=== PATIENT | female | born 1940 | race Caucasian/White ===

== ENCOUNTER → 2017-01-16 | Outpatient (CLI) | payer OTHER | LOC: FIMAGING 11:47 | PROVIDERS: ATTEND Physical Medicine & Rehabilitation | DX: M41.85 Other forms of scoliosis, thoracolumbar region (principal); M50.323 Other cervical disc degeneration at C6-C7 level; M43.12 Spondylolisthesis, cervical region ==

== ENCOUNTER 2017-03-10 09:05 | Observation (INO) | payer OTHER ==
[2017-03-10] MEDS ORDERED: diphenhydrAMINE 25 MG CAP PO ONE ×2 (09:09→09:35)
[2017-03-10] MEDS ORDERED: ASPIRIN EC 325 MG TAB PO ONE ×2 (09:09→09:35)
[2017-03-10] MEDS ORDERED: FAMOTIDINE 20 MG TAB PO ONE (09:09)
[2017-03-10] MEDS ORDERED: DIAZEPAM 5 MG TAB PO ONE (09:09)
[2017-03-10] MEDS ORDERED: NS 1,000 ML IV ONE (09:09)
--- NOTE | 2017-03-10 09:26 | CPEKG ---
Heart Rate: 66 RR Interval: 909 P-R Interval: 148 QRSD Interval: 78 QT Interval: 400 QTC Interval: 420 P [place]: 47 QRS [place]: 72 T Wave [place]: 44 EKG Severity - NORMAL ECG - EKG Impression: SINUS RHYTHM Electronically Signed By: Darrin Patel 11-Mar-2017 10:16:21
[2017-03-10] MEDS ORDERED: FAMOTIDINE 20 MG TAB ONE (09:35)
[2017-03-10] MEDS ORDERED: DIAZEPAM 5 MG TAB ONE (09:36)
[2017-03-10 09:46] LABS: % IMMATURE GRANULYOCYTES 0.4 % (0.0-1.1); ABSOLUTE IMMATURE GRANULOCYTES 0.03 10^3/uL (0.00-0.10); ADD DIFF? NO; ADD MORPH? NO; ADD SCAN? NO; ATYPICAL LYMPHOCYTE FLAG 10 (0-99); FRAGMENT RBC FLAG 0 (0-99); HEMATOCRIT 39.5 % (38.0-47.0); HEMOGLOBIN 13.9 g/dL (12.6-16.3); LEFT SHIFT FLG 0 (0-99); LIPEMIA HEMOLYSIS FLAG 90 (0-99); MEAN CELL HEMOGLOBIN 31.6 pg (27.9-34.1); MEAN CELL HEMOGLOBIN CONCENTR. 35.2 g/dL (32.4-36.7); MEAN CELL VOLUME 89.8 fL (81.5-99.8); MEAN PLATELET VOLUME 9.4 fL (8.7-11.7); PLATELET CLUMPS FLAG 0 (0-99); PLATELET COUNT 235 10^3/uL (150-400); RED CELL DISTRIBUTION WIDTH 13.4 % (11.5-15.2)
[2017-03-10 09:53] LABS: INR 0.95 (0.83-1.16); PROTIME(PATIENT) 12.6 SEC (12.0-15.0)
[2017-03-10 09:57] LABS: ANION GAP 10 mEq/L (8-16); CALCIUM 9.2 mg/dL (8.5-10.4); CARBON DIOXIDE 27 mEq/l (22-31); CHLORIDE 97 mEq/L (97-110); CHOLESTEROL 184 mg/dL (140-220); CHOLESTEROL/HDL RATIO 2.07 RATIO (1.00-4.44); CREATININE 0.9 mg/dL (0.6-1.0); GLOMERULAR FILTRATION RATE > 60; GLUCOSE 112 mg/dL (70-100); HIGH DENSITY LIPOPROTEIN 89 mg/dL (40-85); LDL/HDL RATIO 0.82 RATIO (1.00-3.22); LOW DENSITY LIPOPROTEIN 73 mg/dL (80-100); MAGNESIUM 2.2 mg/dL (1.6-2.3); NON-HIGH DENSITY LIPOPROTEIN 95 mg/dL (90-129); POTASSIUM 4.7 mEq/L (3.5-5.2); SODIUM 134 mEq/L (134-144); TRIGLYCERIDE 112 mg/dL (35-135); VERY LOW DENSITY LIPOPROTEINS 22 mg/dL (8-25)
[2017-03-10] MEDS ORDERED: LIDOCAINE 1% 30 ML SDV ONE (10:06)
[2017-03-10] MEDS ORDERED: fentaNYL 100 MCG/2 ML INJ ONE (10:07)
[2017-03-10] MEDS ORDERED: MIDAZOLAM 2 MG/2 ML VIAL ONE (10:07)
[2017-03-10] MEDS ORDERED: IOPAMIDOL (ISOVUE-370) 150 ML BTL IV ONE (10:07)
[2017-03-10] MEDS ORDERED: NITROGLYCERIN 1,500 MCG/15 ML VIAL MISC ONE (11:52)
[2017-03-10] MEDS ORDERED: BIVALIRUDIN 250 MG/5 ML VIAL IV ONE (11:52)
[2017-03-10] MEDS ORDERED: ADENOSINE 6 MG/2 ML VIAL ONE (12:05)
[2017-03-10] MEDS ORDERED: PRASUGREL HCL 10 MG TAB ONE (12:58)
--- NOTE | 2017-03-10 12:59 | PDDXCAT ---
Diagnostic Cath Note - . Date: 03/10/17 Intervention: Drug Eluting Stent Implantation in the proximal LAD (see below). *Procedure 1. selective coronary angiography 2. drug-eluting stent implantation in the proximal LAD 3. intravascular ultrasound (IVUS) of the LAD Indication: I was called for intervention after the identification of a 65% proximal LAD lesion by Dr. Curtis during diagnostic catheterization. The patient has clinical symptoms of angina and a stress test positive for ischemia. Access: Right femoral artery *Materials Left Heart Cath size: 6F Left Heart Cath materials: JR4.0, 2.75 x 16 mm Synergy drug-eluting stent, 0.014 " Intuition Guide Wire, 2.75 x 12 mm NC Emerge balloon, IVUS catheter *Findings-Selective Coronary Angiography LM: The left main is ~4.5 mm in size and bifurcates into an LAD and circumflex system. There is no evidence of flow-limiting disease. LAD: The proximal LAD is ~2.75 mm in size. There is a 65% proximal LAD lesion via QCA with JOVANA III flow. We proceeded with drug-eluting stent implantation as outlined below. LCX: There is a 30-40% ostial left circumflex lesion with JOVANA III flow. There is no evidence of flow-limiting disease. *Intervention A 6 [place] JR4 guiding catheter was used for guide catheter support. A 0.014" Intuition Guide Wire was advanced across the proximal LAD under direct fluoroscopic and angiographic guidance. A 2.75 x 16 mm Synergy Drug Eluting Stent was placed in the proximal LAD lesion (65% stenosis; JOVANA III flow) and inflated to a maximum of 14 darrian of pressure. S/p stent implantation, the stent was exchanged for a 2.75 x 12 mm NC Emerge balloon. This was used to post- dilate the distal portion of the implanted stent under a maximum of 14 darrian of pressure. S/p stent implantation, IVUS was performed on the proximal LAD to ensure we did not compromise the ostium of the left circumflex. There was 0% residual stenosis on intravascular ultrasound. We did not compromise the left circumflex. *Summary Complications: None Estimated blood loss: <50ml Closure method: Angioseal Assessment/Conclusion: 1. [place] vessel coronary artery disease that was determined to be flow- limiting in the proximal LAD. We proceeded with drug eluting stent implantation with excellent angiographic results (65% plaque area stenosis with JOVANA III flow pre stent implantation; 0% residual stenosis with JOVANA III flow post stent implantation). The patient will need to be on dual-antiplatelet therapy for at least 1 year s/p stent implantation. She is under the care of Dr. Curtis.
[2017-03-10] MEDS ORDERED: ATROPINE SULFATE 1 MG/10 ML SYR IVP PRN (13:15)
[2017-03-10] MEDS ORDERED: NITROGLYCERIN 0.4 MG BTL SL PRN (13:15)
[2017-03-10] MEDS ORDERED: LORazepam 2 MG/ML INJ IVP PRN (13:15)
[2017-03-10] MEDS ORDERED: NS 1,000 ML IV SCH (13:15)
[2017-03-10] MEDS ORDERED: ONDANSETRON 4 MG/2 ML VIAL IVP PRN (13:15)
[2017-03-10] MEDS ORDERED: TEMAZEPAM 15 MG CAP PO PRN (13:15)
[2017-03-10] MEDS ORDERED: OXYCODONE/APAP 5/325 TAB PO PRN (13:15)
[2017-03-10] MEDS ORDERED: PRASUGREL HCL 10 MG TAB PO ONE (13:15)
--- NOTE | 2017-03-10 13:28 | CPEKG ---
Heart Rate: 58 RR Interval: 1034 P-R Interval: 176 QRSD Interval: 82 QT Interval: 432 QTC Interval: 425 P [place]: 73 QRS [place]: 66 T Wave [place]: 33 EKG Severity - NORMAL ECG - EKG Impression: SINUS RHYTHM EKG Impression: NON SPECIFIC INFERIOR ST/T WAVE CHANGES NOTED Electronically Signed By: Darrin Patel 11-Mar-2017 10:16:47
[2017-03-10] MEDS: HYDROCODONE/APAP 5/325 TAB PO PRN ×2 (15:04→23:47)
[2017-03-10] MEDS ORDERED: NON-FORMULARY NEW DRUG (Esomeprazole Magnesium [Nexium 24hr] 22.3 MG) PO PRN (15:27)
[2017-03-10] MEDS ORDERED: NORTRIPTYLINE HCL 10 MG CAP PO PRN (15:27)
[2017-03-10] MEDS ORDERED: NON-FORMULARY NEW DRUG (Losartan/Hydrochlorothiazide [Losartan-Hctz 100-25 Mg Tab] 1 EACH) PO SCH (15:30)
[2017-03-10] MEDS ORDERED: PANTOPRAZOLE SODIUM 40 MG TAB PO PRN (15:33)
[2017-03-10] MEDS: LOSARTAN/HCTZ 50/12.5 1 TAB PO SCH (15:45)
--- NOTE | 2017-03-10 16:15 | CPEKG ---
Heart Rate: 63 RR Interval: 952 P-R Interval: 180 QRSD Interval: 84 QT Interval: 452 QTC Interval: 463 P [place]: 82 QRS [place]: 75 T Wave [place]: 27 EKG Severity - NORMAL ECG - EKG Impression: SINUS RHYTHM EKG Impression: CONTINUED NON SPECIFIC ST/T WAVE CHANGES TO THE INFERIOR LEADS Electronically Signed By: Darrin Patel 11-Mar-2017 10:17:11
--- NOTE | 2017-03-10 16:59 | CPIP ---
[f rep st] INVASIVE CARDIAC PROCEDURE DATE OF PROCEDURE: 03/10/2017 PROCEDURE PERFORMED: Diagnostic left heart catheterization. INDICATION FOR PROCEDURE: New onset of substernal chest pressure, abnormal nuclear stress test demo nstrating anterior wall ischemia, and an ongoing complaints of bilateral shoulder pain with exertion in the setting of multiple coronary artery risk factors, including 50 year history of smoking and h ypertension. PROCEDURE: After informed consent was obtained, the patient was brought to the cardiac catheterizat ion lab where she was prepped and draped in a sterile fashion. Using 1% lidocaine, the right groin was anesthetized. Using modified Seldinger technique, a 6-Uzbek catheter was placed into the right common femoral artery without complications. Using a JL4 catheter . JL4 catheter was us ed to take images of the left coronary anatomy in multiple projections. The JL4 catheter was exchan ged over a guidewire for a JR4 catheter. JR4 catheter was used to take images of the left coronary anatomy in multiple projections. The JR4 catheter was exchanged over a guidewire for an angled pigt ail catheter. An angled pigtail catheter was used to cross the aortic valve. Left ventriculogram w as performed. LVEDP was assessed. Angled pigtail catheter was pulled back. An aortic valve gradie nt was assessed. Angled pigtail catheter was removed over a guidewire without complications. FINDINGS: 1. Left main normal size and caliber. It bifurcates into a left anterior descending and left circu mflex coronary artery. There is no evidence of coronary disease within the left main. 2. Left anterior descending artery is a large artery that wraps around the LV apex. There is a sma ll 1st and moderate size 2nd diagonal branch, which is free of coronary artery disease. There is a 70% to 80% stenosis in the proximal LAD. There remainder of the LAD is free of coronary artery dise ase. 3. The circumflex artery demonstrated 20% to 30% ostial stenosis. Some mild luminal irregularities within the distal circumflex and 1st obtuse marginal branch. 4. Right coronary artery. There is 20% narrowing at the proximal segment of the right coronary art baron. The remainder of the vessel is free of coronary artery disease. Right dominant system. 5. Left ventriculogram demonstrates LVEF of 60% to 65%. No evidence of aortic valve gradient. CONCLUSION: 1. Severe single-vessel coronary artery disease to the proximal LAD of 70% to 80%. 2. Ostial circumflex stenosis of 20% to 30%. 3. Proximal RCA stenosis of approximately 20%. 4. Mild luminal irregularities within the mid and distal circumflex and obtuse marginal branch. PLAN: I have reviewed the images with my interventional colleague, Dr. Mckeon. We will plan for pe rcutaneous coronary intervention to the proximal LAD. /[id number]/MODL
[2017-03-10] MEDS ORDERED: METOPROLOL SUCCINATE XR 50 MG TAB PO SCH (21:00)
[2017-03-11 04:37] LABS: % IMMATURE GRANULYOCYTES 0.4 % (0.0-1.1); ABSOLUTE IMMATURE GRANULOCYTES 0.04 10^3/uL (0.00-0.10); ADD DIFF? NO; ADD MORPH? NO; ADD SCAN? NO; ATYPICAL LYMPHOCYTE FLAG 0 (0-99); FRAGMENT RBC FLAG 0 (0-99); HEMATOCRIT 39.4 % (38.0-47.0); HEMOGLOBIN 13.3 g/dL (12.6-16.3); LEFT SHIFT FLG 0 (0-99); LIPEMIA HEMOLYSIS FLAG 90 (0-99); MEAN CELL HEMOGLOBIN 31.4 pg (27.9-34.1); MEAN CELL HEMOGLOBIN CONCENTR. 33.8 g/dL (32.4-36.7); MEAN CELL VOLUME 92.9 fL (81.5-99.8); MEAN PLATELET VOLUME 9.4 fL (8.7-11.7); PLATELET CLUMPS FLAG 0 (0-99); PLATELET COUNT 240 10^3/uL (150-400); RED BLOOD CELL COUNT 4.24 10^6/uL (4.18-5.33); RED CELL DISTRIBUTION WIDTH 13.8 % (11.5-15.2)
[2017-03-11 04:53] LABS: ALBUMIN 3.8 g/dL (3.5-5.0); ANION GAP 6 mEq/L (8-16); ASPARTATE AMINOTRANSFERASE 26 IU/L (14-46); BILIRUBIN,TOTAL 0.6 mg/dL (0.1-1.4); CALCIUM 8.8 mg/dL (8.5-10.4); CARBON DIOXIDE 26 mEq/l (22-31); CHLORIDE 103 mEq/L (97-110); CREATININE 0.7 mg/dL (0.6-1.0); GLOMERULAR FILTRATION RATE > 60; GLUCOSE 84 mg/dL (70-100); LACTATE DEHYDROGENASE 463 IU/L (313-618); MAGNESIUM 2.3 mg/dL (1.6-2.3); POTASSIUM 4.7 mEq/L (3.5-5.2); SODIUM 135 mEq/L (134-144)
[2017-03-11 07:47] VITALS: BP 106/52; PULSE 63; RESP 14; TEMP 97.7; O2SAT 92
--- NOTE | 2017-03-11 08:45 | SOAPPROG ---
SOAP Progress Note Assessment/Plan: Assessment: Cardiology ([facility]) 1. CAD s/p RHONDA x 1 LAD 2.75 x 16 mm. There was mild RCA and Cx disease. DAPT with aspirin 325 mg and Effient. 2. Long history of tobacco use. 3. HTN treated w/ losartan HCTZ and metoprolol. Control is improved following PCI. 4. Exertional leg heaviness without overt claudication. 5. Normal fasting lipids. She has been started on atorvastatin 40 mg/d in the setting of CAD. 6. Osteoarthritis. Plan: 1. New Rx for Effient and atorvastatin. 2. Continue all other home medications. 3. Refrain from water aerobics for 1-2 weeks. 4. Discharge to home today. 5. Office follow up 03/18 at 130 pm. ABIs at that visit. 03/11/17 08:40 Subjective: She has no complaints overnight. Right groin is mildly tender, there may be a small hematoma. There is no bruit on auscultation. BP is improved. No events on telemetry overnight. Objective: Vital Signs Temp Pulse Resp BP Pulse Ox 36.5 C 63 14 106/52 L 92 03/11/17 07:46 03/11/17 07:46 03/11/17 07:46 03/11/17 07:46 03/11/17 07:46 Laboratory Results 03/11/17 03:48 03/11/17 03:48 03/10/17 03/11/17 03/12/17 05:59 05:59 05:59 Intake Total 500 900 Balance 500 900 PT 12.6 SEC (12.0-15.0) 03/10/17 09:38 INR 0.95 (0.83-1.16) 03/10/17 09:38 - Time Spent With Patient Time Spent With Patient: 45 minutes spent in coordinating care, physical exam, and documentation. - Pending Discharge Pending Discharge Within 24 Hours: Yes Pending Discharge Date: 03/12/17 Pending Discharge Time: 11:00 Physical Exam - Physical Exam General Appearance: WD/WN, alert, no apparent distress Respiratory: chest non-tender, lungs clear, normal breath sounds Cardiac/Chest: normal peripheral pulses, regular rate, rhythm Peripheral Pulses: 2+: dorsalis-pedis (R), dorsalis-pedis (L) Abdomen: normal bowel sounds, non-tender, soft Extremities: normal range of motion, non-tender, normal inspection, normal capillary refill Neuro/Psych: no motor/sensory deficits, alert, normal mood/affect, oriented x 3 ICD10 Worksheet Patient Problems: Problems Problem Status Onset Coronary artery disease Acute
--- NOTE | 2017-03-11 08:49 | CPEKG ---
Heart Rate: 67 RR Interval: 896 P-R Interval: 160 QRSD Interval: 78 QT Interval: 392 QTC Interval: 414 P [place]: 66 QRS [place]: 61 T Wave [place]: 31 EKG Severity - NORMAL ECG - EKG Impression: SINUS RHYTHM EKG Impression: LEFT ATRIAL ENLARGEMENT Electronically Signed By: Darrin [place] 11-Mar-2017 18:35:02
[2017-03-11] MEDS: LOSARTAN/HCTZ 50/12.5 1 TAB PO SCH (08:59)
[2017-03-11] MEDS ORDERED: TIOTROPIUM INHALER 18 MCG/DOSE 5 DOSE/MDI IH SCH (09:00)
[2017-03-11] MEDS ORDERED: PRASUGREL HCL 5 MG TAB PO SCH (09:00)
[2017-03-11] MEDS ORDERED: buPROPion XL 150 MG TAB PO SCH (09:00)
[2017-03-11] MEDS ORDERED: ASPIRIN EC 325 MG TAB PO SCH (09:00)
[2017-03-11] MEDS ORDERED: ATORVASTATIN CALCIUM 40 MG TAB PO SCH (09:00)
[2017-03-11] MEDS ORDERED: NON-FORMULARY NEW DRUG (Bupropion Hcl [Wellbutrin Xl] 300 MG) PO SCH (09:00)
--- NOTE | 2017-03-11 10:00 | GDS ---
[f rep st] DISCHARGE SUMMARY DISCHARGE DIAGNOSES: 1. Coronary artery disease, status post stenting of left anterior descending artery. 2. Long history of tobacco abuse. 3. Hypertension. 4. Normal fasting lipids. 5. Osteoarthritis. 6. Exertional leg heaviness without overt claudication. PROCEDURE PERFORMED: 1. Left heart catheterization with selective coronary angiography and ventriculography (performed by Dr. Curtis). 2. Implantation of single drug-eluting stent in the left anterior descending artery followed by post dilation and IVUS (performed by Dr. Mckeon). HOSPITAL COURSE: The patient is a pleasant 76-year-old female with a history of hypertension and long history of tobacco use who was referred by her primary care physician for chest discomfort. She underwent nuclear stress testing through our office that showed an anterior and apical wall perfusion defect, and she was referred for elective left heart catheterization, which she underwent yesterday. Diagnostic angiography performed by Dr. Curtis showed an approximately 70% stenotic lesion in the left anterior descending artery. There was otherwise mild coronary disease in the right coronary and circumflex arteries. Intervention was performed by Dr. Mckeon with a single 2.75 x 16 mm Synergy stent. Please see dictated report for further details. The procedure was performed via right femoral approach, and there were no complications. The patient had no complaints overnight. Her right groin puncture site looks good but there is some soft swelling, consistent with a small hematoma. It is mildly tender to palpation, but she has no issues walking. There are normal dorsalis pedis pulses bilaterally. CBC and chemistry panel are unremarkable. There have been no events on telemetry overnight. She denies any chest discomfort, shortness of breath, or dizziness since her procedure. Blood pressures have come down considerably from the last couple of weeks, and she will go home on her current antihypertensive medication regimen. The patient will be discharged today with instructions as below. DISCHARGE MEDICATIONS: Aspirin 325 mg p.o. daily, Effient 10 mg p.o. daily, atorvastatin 40 mg p.o. daily, Hyzaar 50/12.5 mg 2 tablets daily, Wellbutrin 300 mg p.o. daily, metoprolol succinate 50 mg p.o. q.h.s., Nexium 22.3 mg once daily, Pamelor 10 mg q.h.s., Prolia 60 mg subcutaneous twice yearly. DISCHARGE INSTRUCTIONS: The patient has a followup scheduled for March 18 at 1:30 in our office. She will be continued on her other home medications with the addition of atorvastatin, Effient, and aspirin. Her medications have been described to her in detail. She does plan to participate in cardiac rehab. However, she will likely choose to do this at either [facility] or [facility]. She does incidentally complain of some bilateral buttock discomfort with exertion as well as leg heaviness bilaterally when she walks. As an incidental note, we will perform ankle/brachial indices in our office due to her multiple risk factors for peripheral artery disease. She will also likely need a baseline carotid ultrasound in the future. /[id number]/MODL MTDD
== END 2017-03-11 10:43 | disposition home or self-care (01) ==
LOC: FCATH 09:05 → F2W 13:15
PROVIDERS: ADMIT Internal Medicine Cardiovascular Disease; ATTEND Internal Medicine Cardiovascular Disease
DX: I25.10 Atherosclerotic heart disease of native coronary artery without angina pectoris (principal); Z87.891 Personal history of nicotine dependence; I10 Essential (primary) hypertension; M19.90 Unspecified osteoarthritis, unspecified site
CPT/HCPCS: 92978; 93005; 93458; C1725; C1753; C1760; C1769; C1874; C1887; C9600; J0583; J1644; J2250; J3010; Q9967; J0153

== ENCOUNTER → 2017-03-26 | Outpatient (CLI) | payer OTHER | LOC: BMCIMAGING 08:03 | PROVIDERS: ATTEND Physician Assistant Medical | DX: I25.10 Atherosclerotic heart disease of native coronary artery without angina pectoris (principal); I10 Essential (primary) hypertension ==

== ENCOUNTER 2017-07-10 19:50 | Inpatient (IN) | payer OTHER ==
[2017-07-10 20:36] LABS: % IMMATURE GRANULYOCYTES 0.8 % (0.0-1.1); ADD DIFF? NO; ADD MORPH? NO; ADD SCAN? NO; ATYPICAL LYMPHOCYTE FLAG 10 (0-99); FRAGMENT RBC FLAG 0 (0-99); HEMATOCRIT 36.4 % (38.0-47.0); HEMOGLOBIN 11.7 g/dL (12.6-16.3); LEFT SHIFT FLG 0 (0-99); LIPEMIA HEMOLYSIS FLAG 80 (0-99); MEAN CELL HEMOGLOBIN 30.9 pg (27.9-34.1); MEAN CELL HEMOGLOBIN CONCENTR. 32.1 g/dL (32.4-36.7); MEAN PLATELET VOLUME 9.2 fL (8.7-11.7); PLATELET CLUMPS FLAG 0 (0-99); PLATELET COUNT 247 10^3/uL (150-400); RED BLOOD CELL COUNT 3.79 10^6/uL (4.18-5.33); RED CELL DISTRIBUTION WIDTH 14.6 % (11.5-15.2)
[2017-07-10 20:56] LABS: ALANINE AMINOTRANSFERASE 33 IU/L (9-52); ALKALINE PHOSPHATASE 69 IU/L (38-126); ANION GAP 15 mEq/L (8-16); ASPARTATE AMINOTRANSFERASE 16 IU/L (14-46); BILIRUBIN,TOTAL 0.6 mg/dL (0.1-1.4); BILIRUBIN-CONJUGATED 0.4 mg/dL (0.0-0.5); BILIRUBIN-UNCONJUGATED 0.2 mg/dL (0.0-1.1); CALCIUM 9.8 mg/dL (8.5-10.4); CARBON DIOXIDE 22 mEq/l (22-31); CHLORIDE 103 mEq/L (97-110); CREATININE 0.6 mg/dL (0.6-1.0); GLOMERULAR FILTRATION RATE > 60; GLUCOSE 169 mg/dL (70-100); POTASSIUM 3.4 mEq/L (3.5-5.2); SODIUM 140 mEq/L (134-144); TOTAL PROTEIN 6.5 g/dL (6.3-8.2)
[2017-07-10] MEDS ORDERED: NS 1,000 ML IV ONE (21:34)
--- NOTE | 2017-07-10 21:41 | EDPHY ---
H & P Smoking Status: Former smoker Time Seen by Provider: 07/10/17 21:38 HPI/ROS: HPI: Ms Govea is a 76 yrs, female who presents with Chief Complaint: Rectal bleeding Location: Rectum Quality: Bleeding Duration: Started 4 hours ago Signs and Symptoms: no dizziness, no chest pain, no SOB, mild lower abdominal pain, no diarrhea, + constipation, no hemorrhoids Timing: sudden, intermittent Severity: moderate Context: Pleasant patient complains of sudden onset at 5 o'clock while trying to have a bowel movement of bright red blood per rectum that dripped into the toilet, small clots noted. She is going to a total of 4 times within 4 hours since that time. She is on full-strength aspirin as well as Effient for a cardiac stent last year. She had a screening colonoscopy several years ago that was essentially normal for patient other than "a few polyps." She has noted decreased appetite over the last 2-3 weeks. Patient denies any history of abdominal surgery. Denies any recent antibiotic use. Has not been out of the country. Modifying Factors: none Comment: ROS: Eyes: No blurred vision Respiratory: No shortness of breath, no cough Cardiovascular: No chest pain Gastrointestinal: No nausea, no vomiting no diarrhea Genitourinary: No dysuria Extremities: No myalgias Neurologic: No weakness, no numbness Skin: No rashes Hematologic: No bruising, no bleeding MEDICAL/SURGICAL HISTORY: Coronary artery disease, hypertension, hyperlipidemia, GERD, osteoporosis, vitamin-D deficiency. (Muna Gaitan) Social History: . Retired. (Muna Gaitan) Physical Exam: CONSTITUTIONAL: Pleasant adult white female, family at bedside, awake and alert , no obvious distress HEENT: Atraumatic and normocephalic, PERRL, EOMI. Tympanic membranes clear. . Oropharynx clear, no exudate and moist pink mucosa. Airway patent. No lymphadenopathy. No meningismus. Cardiovascular: Normal S1/S2, regular rate, regular rhythm, without murmur rub or gallop. PULMONARY/CHEST: Symmetrical and nontender. Clear to auscultation bilaterally Good air movement. No accessory muscle usage. ABDOMEN: Soft, nondistended, nontender, no rebound, no guarding, no peritoneal signs, no masses or organomegaly. No CVAT. RECTAL: Good sphincter tone, , guaiac positive, no hemorrhoids, no masses EXTREMITIES: 2/2 pulses, no deformities, no clubbing, no cyanosis or edema. NEUROLOGICAL: no focal neuro deficits. GCS 15. SKIN: Warm and dry, no erythema. no rash. Good capillary refill. (Muna Gatian) Constitutional: Initial Vital Signs Temperature (C) 36.4 C 07/10/17 20:02 Heart Rate 67 07/10/17 20:02 Respiratory Rate 16 07/10/17 20:02 Blood Pressure 161/50 H 07/10/17 20:02 O2 Sat (%) 94 07/10/17 20:02 O2 Delivery Mode Room Air Allergies/Adverse Reactions: No Allergies [NKDA] Allergy (Verified 07/10/17 20:06) Home Medications: Medication Instructions Recorded Denosumab [Prolia] 60 mg SQ Q180D 03/10/17 Esomeprazole Magnesium [Nexium 22.3 mg PO DAILY PRN 03/10/17 24Hr] Herbals/Supplements -Info Only 1 ea PO DAILY 03/10/17 Hydrocodone/APAP 5/325 [[place] 1 each PO Q8H PRN 03/10/17 5/325 (*)] Metoprolol Succinate Xr [Toprol Xl 50 mg PO HS 03/10/17 50 mg (*)] Multivitamins [Multivitamin (*)] 1 each PO DAILY 03/10/17 Tiotropium Inhaler [Spiriva 18 mcg IH DAILY 03/10/17 Hand[place]haler] Prasugrel HCl [Effient 5mg (*)] 5 mg PO DAILY #0 tab 03/11/17 Aspirin EC [Aspirin EC 81 mg (*)] 81 mg PO DAILY 07/11/17 Atorvastatin Calcium [Lipitor 40 40 mg PO HS 07/11/17 mg (*)] Diltiazem HCl [Cartia Xt] 120 mg PO DAILY 07/11/17 Losartan Potassium [Cozaar] 100 mg PO DAILY 07/11/17 Methocarbamol [Robaxin 500 mg (*)] 1,000 mg PO BID PRN 07/11/17 oxyCODONE CR [Oxycontin] 15 mg PO BID 07/11/17 Medical Decision Making ED Course/Re-evaluation: IV fluids, labs, urinalysis, type and screen, CT abdominal and pelvis scan, IV medications guaiac grossly positive H&H is 11.7/36.4 CT abdominal and pelvis scan shows severe colitis from the transverse colon to the sigmoid rectus Mild leukocytosis, afebrile and no recent antibiotic use, suspect inflammatory greater than infectious process 2310 ED consult for admission, spoke with Hospitalalist, Dr. Sutton who kindly accepts patient for admission (Muna Gaitan) I did not see this patient while she was in the emergency department. However her care was discussed with the PA while the patient was in the department. I agree with treatment plan and management (Natanael Morton) Differential Diagnosis: Abdominal pain including but not limited to appendicitis, cholecystitis, gastritis, diverticulitis, colitis and urinary tract infection. (Muna Gaitan) - Data Points Laboratory Results: Laboratory Results 07/10/17 20:25 07/10/17 20:25 Medications Given: Diltiazem HCl (Cardizem Er Q24hr) 120 mg PO DAILY ALESSIO Stop: 01/07/18 12:59 Last Admin: 07/11/17 13:23 Dose: 120 mg Hydromorphone HCl (Dilaudid) 0.2 - 0.4 mg IVP Q2HRS PRN PRN Reason: Pain, Severe Unable to Take PO Stop: 07/20/17 23:30 Last Admin: 07/11/17 05:02 Dose: 0.4 mg Sodium Chloride (Ns) 1,000 mls @ 125 mls/hr IV CONT ALESSIO Stop: 01/06/18 23:44 Last Admin: 07/11/17 01:31 Dose: 1,000 mls Methocarbamol (Robaxin) 1,000 mg PO BID PRN PRN Reason: Spasms Stop: 01/07/18 12:45 Last Admin: 07/11/17 13:38 Dose: 1,000 mg Oxycodone HCl (Oxycodone Ir) 5 - 10 mg PO Q4 PRN PRN Reason: Pain, Severe Able to Take PO Stop: 07/20/17 23:30 Last Admin: 07/11/17 08:24 Dose: 10 mg Oxycodone HCl (Oxycontin) 15 mg PO BID ALESSIO Stop: 07/21/17 12:59 Last Admin: 07/11/17 13:27 Dose: 15 mg Discontinued Medications Sodium Chloride (Ns) 1,000 mls @ 0 mls/hr IV EDNOW ONE; Wide Open PRN Reason: Protocol Stop: 07/10/17 21:35 Last Admin: 07/10/17 22:26 Dose: 1,000 mls Sodium Chloride (Ns) 1,000 mls @ 150 mls/hr IV CONT ALESSIO Stop: 01/06/18 23:14 Last Admin: 07/10/17 23:22 Dose: 1,000 mls Magnesium Sulfate (Magnesium Sulf 2 Gm (Premix)) 50 mls @ 50 mls/hr IV ONCE ONE Stop: 07/11/17 14:06 Last Admin: 07/11/17 13:42 Dose: 50 mls Morphine Sulfate (Morphine) 2 mg IVP EDNOW ONE Stop: 07/10/17 23:10 Last Admin: 07/10/17 23:21 Dose: 2 mg Morphine Sulfate (Morphine) 2 mg IVP EDNOW ONE Stop: 07/11/17 00:21 Last Admin: 07/11/17 00:24 Dose: 2 mg Ondansetron HCl (Zofran) 4 mg IVP EDNOW ONE Stop: 07/10/17 23:10 Last Admin: 07/10/17 23:22 Dose: 4 mg Potassium Chloride (Klor-Con) 30 meq PO ONCE ONE PRN Reason: Protocol Stop: 07/11/17 07:30 Last Admin: 07/11/17 08:26 Dose: 30 meq Departure - Departure Disposition: [facility] Inpatient Acute Clinical Impression: Colitis, Lower GI bleeding, Chronic anticoagulation Coronary artery disease Qualifiers: Coronary Disease-Associated Artery/Lesion type: [place] artery [place] vs. transplanted heart: [place] heart Associated angina: without angina Qualified Code(s): I25.10 - Atherosclerotic heart disease of [place] coronary artery without angina pectoris Condition: Good
[2017-07-10] MEDS ORDERED: IOPAMIDOL (ISOVUE-300) 100 ML BTL ONE (21:44)
[2017-07-10 22:10] LABS: INR 1.1 (0.83-1.16); PROTIME(PATIENT) 14.1 SEC (12.0-15.0)
[2017-07-10] MEDS ORDERED: ONDANSETRON 4 MG/2 ML VIAL IVP ONE (23:09)
[2017-07-10] MEDS ORDERED: NS 1,000 ML IV SCH (23:15)
[2017-07-10] MEDS ORDERED: ONDANSETRON 4 MG/2 ML VIAL IVP PRN (23:31)
[2017-07-10] MEDS ORDERED: HYDROmorphONE/DILAUDID 1 MG/ML SYR IVP PRN (23:31)
[2017-07-10] MEDS ORDERED: PROTOCOL POTASSIUM 1 DOSE MISC PRN (23:31)
[2017-07-10] MEDS ORDERED: ACETAMINOPHEN 325 MG TAB PO PRN (23:31)
--- NOTE | 2017-07-10 23:54 | CPEKG ---
Heart Rate: 86 RR Interval: 698 P-R Interval: 160 QRSD Interval: 74 QT Interval: 388 QTC Interval: 464 P [place]: 77 QRS [place]: 86 T Wave [place]: 47 EKG Severity - ABNORMAL ECG - EKG Impression: SINUS RHYTHM EKG Impression: LEFT ATRIAL ABNORMALITY EKG Impression: BORDERLINE RIGHT AXIS DEVIATION Electronically Signed By: Darrin Patel 12-Jul-2017 15:57:56
[2017-07-11 01:02] LABS: HEMOGLOBIN 11.2 g/dL (12.6-16.3)
[2017-07-11] MEDS: oxyCODONE IR 5 MG TAB PO PRN ×4 (01:30→20:44)
[2017-07-11] MEDS: NS 1,000 ML IV SCH ×2 (01:31→23:50)
--- NOTE | 2017-07-11 02:15 | GHP ---
[f rep st] HISTORY AND PHYSICAL DATE OF ADMISSION: 07/10/2017 CHIEF COMPLAINT: Bright red blood per rectum. HISTORY: The patient is a 76-year-old female who had onset of diarrhea at about 6 p.m. this evening . Her first stool was nonbloody. Then, subsequently, she developed multiple episodes of bloody gianni rrhea, and now it looks more just like terri bright red blood per rectum. She also developed new on set bilateral lower quadrant abdominal pain. She has nausea, but no vomiting. She denies any recen t travel or unusual foods. She has overall been doing poorly since beginning of the year. She had a stent placed to her LAD in February; however, actually feels worse after that. Her mobility is worsening, and she is having freq uent muscle spasms. Family is also concerned that cardiac medications are making her feel worse. F or the last week, she has had poor oral intake and has eaten very little due to poor appetite and al tered taste sensations. 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 She cut her antiplatelets in half, reducing her Effient from 10 mg to 5 mg, and her aspirin from 325 mg to 81 mg. She took her first dose of new anti-platelet drug this morning. PAST MEDICAL HISTORY: 1. Coronary artery disease, status post stent to LAD in February. 2. Hypertension. MEDICATIONS: Please see computer record for full detailed list. ALLERGIES: No known drug allergies. SOCIAL HISTORY: She was a long-term smoker, but quit in November 2016. She drinks 1 glass of wine p er day. She lives with her . REVIEW OF SYSTEMS: Complete review of systems obtained review of systems is negative on constitutio nal, HEENT, GI, pulmonary, cardiovascular, , hematology, skin, muscular, endocrine, psych, except for positives as noted in HPI. FAMILY HISTORY: Reviewed and noncontributory to presenting complaint. PHYSICAL EXAMINATION: GENERAL: Well-developed, well-nourished female, in no acute distress. VITAL SIGNS: Temperature is 36.4, pulse 57, blood pressure 161/50, satting 94% on room air. EYES: Norm al conjunctivae. Pupils react to light. ENT: Normal ears and nose. Hearing intact. Normal lips and teeth. Oropharynx moist. NECK: Trachea midline. No thyromegaly. CHEST: Normal respiratory effort. LUNGS: Clear to auscultation bilaterally. CARDIOVASCULAR: Regular rhythm. No murmur. N o lower extremity edema. ABDOMEN: Soft. Mild tenderness to palpation in bilateral lower quadrants without rebound or guarding. No hepatosplenomegaly. SKIN: Warm, dry, intact, without rash. MUSC ULOSKELETAL: No cyanosis or clubbing. Strength 5/5 in upper and lower extremities. NEURO: Crania l nerves intact. Normal sensation to light touch. PSYCHIATRIC: Alert and oriented x3. Normal aff ect. Normal judgment and insight. Normal memory. LABORATORY DATA: White count 12.9, hematocrit 36.4, platelets 247. Sodium 140, potassium 3.4, chlo ride 103, bicarb 22, BUN 19, creatinine 0.6, glucose 169. INR is 1.1. She is heme negative. LFTs are normal. EKG viewed by me; my personal interpretation is normal sinus rhythm no ST-T wave changes. CT scan o f the abdomen and pelvis consistent with colitis. ASSESSMENT/PLAN: 1. Colitis. Differential diagnosis is infectious versus ischemic. I doubt late-onset inflammatory bowel disease given her advanced age. Will check a GI panel, PCR. If this is negative, my suspici on is increased for ischemic colitis. Will consider GI consultation. It is curious that her anti-p latelet drugs were just reduced prior to this potential clotting situation. Will follow serial H an d H's. 2. Coronary artery disease, status post drug-eluting stent to the left anterior descending, February 21. I will hold her aspirin and Effient tonight. She took them yesterday morning, so she is not d ue until morning anyway. I would restart these SHEREE, as soon as the bleeding has ceased as she does need aggressive antiplatelet therapy for 1 year. 3. Hypertension. Clarify her usual home medications. 4. Failure to thrive. This may warrant further workup. Will complete her medical evaluation with a chest x-ray, urinalysis, and TSH. Will get PT and OT consultation. 5. Deep vein thrombosis prophylaxis. Will do SCDs only given acute it bleed. CODE STATUS: Full. ADMISSION STATUS: Will admit to inpatient. Anticipate greater than 2 midnights required for stabil ization. /[id number]/MODL
[2017-07-11 05:02] LABS: % IMMATURE GRANULYOCYTES 0.3 % (0.0-1.1); ABSOLUTE IMMATURE GRANULOCYTES 0.04 10^3/uL (0.00-0.10); ADD DIFF? NO; ADD MORPH? NO; ADD SCAN? NO; ATYPICAL LYMPHOCYTE FLAG 0 (0-99); FRAGMENT RBC FLAG 0 (0-99); HEMATOCRIT 31.4 % (38.0-47.0); HEMOGLOBIN 10.2 g/dL (12.6-16.3); LEFT SHIFT FLG 10 (0-99); LIPEMIA HEMOLYSIS FLAG 80 (0-99); MEAN CELL HEMOGLOBIN 31.4 pg (27.9-34.1); MEAN CELL HEMOGLOBIN CONCENTR. 32.5 g/dL (32.4-36.7); MEAN CELL VOLUME 96.6 fL (81.5-99.8); MEAN PLATELET VOLUME 9.3 fL (8.7-11.7); PLATELET CLUMPS FLAG 10 (0-99); PLATELET COUNT 203 10^3/uL (150-400); RED BLOOD CELL COUNT 3.25 10^6/uL (4.18-5.33); RED CELL DISTRIBUTION WIDTH 14.7 % (11.5-15.2)
[2017-07-11 05:21] LABS: ANION GAP 8 mEq/L (8-16); CALCIUM 7.5 mg/dL (8.5-10.4); CARBON DIOXIDE 19 mEq/l (22-31); CHLORIDE 112 mEq/L (97-110); CREATININE 0.5 mg/dL (0.6-1.0); GLOMERULAR FILTRATION RATE > 60; GLUCOSE 115 mg/dL (70-100); MAGNESIUM 1.8 mg/dL (1.6-2.3); POTASSIUM 3.3 mEq/L (3.5-5.2); SODIUM 139 mEq/L (134-144)
[2017-07-11 07:27] LABS: COLOR YELLOW; LEUKOCYTE ESTERASE,URINE NEGATIVE (NEGATIVE); NITRITE,URINE NEGATIVE (NEGATIVE)
[2017-07-11] MEDS ORDERED: POTASSIUM CL 10 MEQ TAB PO ONE ×2 (07:29→20:24)
[2017-07-11] MEDS ORDERED: METHOCARBAMOL 500 MG TAB PO PRN (12:46)
[2017-07-11] MEDS ORDERED: PRASUGREL HCL 5 MG PO SCH (13:00)
[2017-07-11] MEDS ORDERED: TIOTROPIUM 18 MCG IH SCH (13:00)
[2017-07-11] MEDS ORDERED: MAGNESIUM SULF 2 GM/WATER 50 ML IV ONE (13:07)
[2017-07-11 13:08] LABS: HEMATOCRIT 33.2 % (38.0-47.0); HEMOGLOBIN 10.6 g/dL (12.6-16.3); MEAN CELL HEMOGLOBIN CONCENTR. 31.9 g/dL (32.4-36.7); MEAN CELL VOLUME 97.1 fL (81.5-99.8); RED BLOOD CELL COUNT 3.42 10^6/uL (4.18-5.33); RED CELL DISTRIBUTION WIDTH 14.8 % (11.5-15.2)
--- NOTE | 2017-07-11 13:17 | HOSPPROG ---
Hospitalist Progress Note Assessment/Plan: -BRBPR with anemia -concerning for ischemic colitis -GI consult, Dr Leary -serial hgb/hct stable -on chronic anticoag also s/p LAD stent earlier this yr -CAD -s/p LAD stent -chronic anti-coag -HTN -home meds -Failure to thrive in elderly -TSH slightly low -discuss more with family/pt in AM - PT/OT eval -would benefit from short term SNF -chronic neck pain -home meds restarted -pt/ot -kpad -hypokalemia -likely second to diarrhea -replace per protocol DNR PCP- Dr Jeremy ORTEGA prophy- on chronic anti-coag as above, hold ASA (OK to hold effient also per GI recs) Dispo- > 2 mdnts for evaluation/stability of high risk medical issue Subjective: Still in some pain, had two bloody stools this AM. Daughter in room. No CP/SOB. Objective: Vital Signs Temp Pulse Resp BP Pulse Ox 98.1 F 94 16 150/58 H 95 07/11/17 09:31 07/11/17 09:31 07/11/17 09:31 07/11/17 09:31 07/11/17 09:31 Laboratory Results 07/11/17 13:03 07/11/17 04:54 07/10/17 07/11/17 07/12/17 11:59 11:59 11:59 Intake Total 2706 Output Total 650 Balance 2056 PT 14.1 SEC (12.0-15.0) 07/10/17 20:25 INR 1.10 (0.83-1.16) 07/10/17 20:25 - Time Spent With Patient Time Spent with Patient: greater than 25 minutes Time Spent with Patient: Greater than 25 minutes spent on this patients care, greater than 50% of time spent counseling, educating, and coordinating care regarding the above mentioned plan. - Pending Discharge Pending Discharge Within 24 Hours: No - Physical Exam Constitutional: no apparent distress, appears nourished, uncomfortable Eyes: PERRL, anicteric sclera, EOMI Ears, Nose, Mouth, Throat: moist mucous membranes, hearing normal Cardiovascular: regular rate and rhythym, No edema Respiratory: no respiratory distress, no rales or rhonchi, clear to auscultation Gastrointestinal: tenderness, No guarding, No rebound, No distension Skin: warm Psychiatric: interacting appropriately, not anxious, not encephalopathic, thought process linear ICD10 Worksheet Patient Problems: Problems Problem Status Onset Chronic anticoagulation Acute Colitis Acute Coronary artery disease Acute Lower GI bleeding Acute Coronary artery disease Acute
[2017-07-11] MEDS: DILTIAZEM CD 120 MG CAP PO SCH (13:23)
[2017-07-11] MEDS: oxyCODONE CR 15 MG TAB PO SCH ×2 (13:27→20:44)
[2017-07-11] MEDS ORDERED: PRASUGREL HCL 5 MG TAB PO SCH (13:30)
[2017-07-11] MEDS ORDERED: TIOTROPIUM INHALER 18 MCG/DOSE 5 DOSE/MDI IH SCH (13:30)
[2017-07-11] MEDS: PRASUGREL HCL 5 MG TAB PO SCH (15:14)
--- NOTE | 2017-07-11 17:36 | SOAPPROG ---
SHYLA Progress Note Assessment/Plan: Chart reviewed, pt. not seen yet, formal note to follow. Overall, suspect ischemic colitis, especially with her known CAD, recent stent, etc. Infectious possible, but less likely. - "long" flex sig tomorrow, to reach the area of her inflammation on CT, to confirm ischemic colitis only - else, should resolve with time Thanks! 07/11/17 17:33 Objective: Vital Signs Temp Pulse Resp BP Pulse Ox 36.7 C 90 16 143/50 H 95 07/11/17 15:15 07/11/17 15:15 07/11/17 15:15 07/11/17 15:15 07/11/17 15:20 Laboratory Results 07/11/17 13:03 07/11/17 04:54 07/10/17 07/11/17 07/12/17 05:59 05:59 05:59 Intake Total 2706 Output Total 650 Balance 2056 PT 14.1 SEC (12.0-15.0) 07/10/17 20:25 INR 1.10 (0.83-1.16) 07/10/17 20:25 ICD10 Worksheet Patient Problems: Problems Problem Status Onset Chronic anticoagulation Acute Colitis Acute Coronary artery disease Acute Lower GI bleeding Acute Coronary artery disease Acute
[2017-07-11] MEDS: GOLYTELY 4000 ML BTL PO ONE ×2 (17:55→18:46)
[2017-07-11 18:42] LABS: POTASSIUM 3.5 mEq/L (3.5-5.2)
[2017-07-11] MEDS ORDERED: METOPROLOL SUCCINATE XR 50 MG TAB PO SCH (21:00)
[2017-07-12 05:18] LABS: HEMATOCRIT 31.9 % (38.0-47.0); HEMOGLOBIN 10.3 g/dL (12.6-16.3); MEAN CELL HEMOGLOBIN 31.7 pg (27.9-34.1); MEAN CELL HEMOGLOBIN CONCENTR. 32.3 g/dL (32.4-36.7); MEAN CELL VOLUME 98.2 fL (81.5-99.8); RED BLOOD CELL COUNT 3.25 10^6/uL (4.18-5.33); RED CELL DISTRIBUTION WIDTH 14.7 % (11.5-15.2)
[2017-07-12 05:29] LABS: ANION GAP 8 mEq/L (8-16); CALCIUM 7.1 mg/dL (8.5-10.4); CARBON DIOXIDE 20 mEq/l (22-31); CHLORIDE 110 mEq/L (97-110); CREATININE 0.5 mg/dL (0.6-1.0); GLOMERULAR FILTRATION RATE > 60; GLUCOSE 74 mg/dL (70-100); POTASSIUM 3.7 mEq/L (3.5-5.2); SODIUM 138 mEq/L (134-144)
[2017-07-12] MEDS ORDERED: LOSARTAN POTASSIUM 50 MG TAB PO SCH (09:00)
[2017-07-12] MEDS ORDERED: NON-FORMULARY NEW DRUG (Losartan Potassium [Cozaar] 100 MG) PO SCH (09:00)
[2017-07-12] MEDS ORDERED: TIOTROPIUM INHALER 18 MCG/DOSE 5 DOSE/MDI IH SCH (09:00)
[2017-07-12] MEDS ORDERED: MIDAZOLAM 2 MG/2 ML VIAL ONE ×2 (09:10→09:30)
[2017-07-12] MEDS ORDERED: fentaNYL 100 MCG/2 ML INJ ONE (09:10)
[2017-07-12] MEDS ORDERED: MIDAZOLAM 2 MG/2 ML VIAL IVP ONE (09:36)
[2017-07-12] MEDS ORDERED: fentaNYL 100 MCG/2 ML INJ IVP ONE (09:36)
[2017-07-12 09:51] VITALS: PULSE 80; TEMP 98.4
[2017-07-12] MEDS ORDERED: BISMUTH SUBSALICYLATE 524 MG/30 ML UDL PO PRN (09:57)
[2017-07-12] MEDS ORDERED: CIPROFLOXACIN 500 MG TAB PO SCH (10:00)
[2017-07-12 10:02] VITALS: O2SAT 98
--- NOTE | 2017-07-12 10:04 | POSTOPPROG ---
Post Op Note Date of Operation: 07/12/17 Surgeon: Michel Leary Pre-op Diagnosis: diarrhea Post-op Diagnosis: colitis Indication: as above Procedure: colon with bx Findings: Colitis. ?ischemic vs E Coli. Cipro x 3 days. Inf/Abcess present in the surg proc area at time of surgery?: No Complications: None Specimen(s): bx
[2017-07-12 10:07] VITALS: RESP 16
--- NOTE | 2017-07-12 10:20 | GPN ---
[f rep st] PROCEDURE NOTE DATE OF PROCEDURE: 07/12/2017 PROCEDURE: Colonoscopy, unprepped, with biopsy. PRE-PROCEDURE DIAGNOSIS: Bloody diarrhea. Of note, her stool for GI pathogen, PCR does return positive for E coli, enteropathic type. POSTPROCEDURE DIAGNOSIS: Colitis (see below). PREMEDICATION: Fentanyl 100 mcg IV, Versed 6 mg IV. COMPLICATIONS: None. TOTAL TIME: Of note, total time of procedure from sedation to procedures end was 22 minutes. FINDINGS: After informed consent was obtained, the patient was placed in the left lateral decubitus position. Video pediatric colonoscope was placed in the rectum and advanced well beyond the splenic flexure, into the transverse colon, at approximately 90 cm. Upon slow withdrawal, colitis was seen from the full length of the exam to about 35 cm. From 35 cm to the anal verge, normal. There were several left-sided diverticula seen. The colitis was represented by moderately severe erythema, friability, exudate. There was no "purplish" aspect , and no ulcerations. Biopsies were performed of this colitis. IMPRESSION: Moderately severe colitis, as above. Hard to say whether this represents infectious colitis versus related to her positive E coli. Certainly the segmental nature would favor ischemic colitis, but there is no obvious ischemic features, such as "purplish" mucosa, ulceration, etc. In terms of E coli, it is unusual that an enteropathic type (which is not O:157), would cause should such a degree of inflammation, and also spare the lower colon. Regardless, both almost always improve with time, and should not be recurrent. PLAN: 1. We will let her eat. 2. We will treat her empirically for her positive E coli, as the risk of treatment is quite low, and she certainly was symptomatic enough for hospitalization. We will use ciprofloxacin 500 mg twice daily for 3 days. Of note, I did discuss informally the case with Dr. Goldsmith, with Infectious Disease. 3. Kaopectate as needed for diarrhea. 4. Otherwise, suspect the above will improve with time. I will sign off. I will follow up on her biopsies, but doubt will post exchange manager. Otherwise, please call if we can be of further help in the future. /[id number]/MODL MTDD
--- NOTE | 2017-07-12 10:24 | GCON ---
[f rep st] CONSULTATION GI INPATIENT CONSULTATION DATE OF CONSULTATION: 07/12/2017 REASON FOR CONSULTATION: I was kindly requested to see the patient by Dr. Alize Pavon for a chief complaint of bloody diarrhea. HISTORY OF PRESENT ILLNESS: She is a 76-year-old white female, who developed diarrhea acutely, that then became bloody. With this, she has had some bilateral lower quadrant crampy pain, nausea. Today, she is no longer having blood per rectum. She states her diarrhea is less. She is still having pain, moderate in intensity, mostly on the left side, but somewhat better than yesterday. PAST MEDICAL HISTORY: 1. As above. 2. Coronary artery disease with a recent stent in February. 3. Hypertension. 4. Otherwise, noncontributory. ALLERGIES: No known drug allergies. OUTPATIENT MEDICATIONS: Include losartan, diltiazem, oxycodone twice a day, a statin, low-dose Nexium, Prolia, metoprolol, Effient, and aspirin. INPATIENT MEDICATIONS: Include diltiazem, Cozaar, Toprol, OxyContin, Effient, IV fluids and potassium protocol. ALLERGIES: No known drug allergies. SOCIAL HISTORY: She drinks 1 glass of wine per day. FAMILY HISTORY: Negative for similar bleeding. REVIEW OF SYSTEMS: Positive pertinent review of systems as per my HPI. Otherwise, complete review of systems is negative. PHYSICAL EXAMINATION: CONSTITUTIONAL: Pleasant woman, relatively nontoxic but with some abdominal tenderness. SKIN: Warm, dry. EYES: Pupils equal, round, reactive to light and accommodation. EAR, NOSE, MOUTH, AND THROAT: Oropharynx without masses, moist mucosa. CARDIOVASCULAR: Normal S2, normal PMI. RESPIRATORY: Lungs clear to auscultation and percussion anteriorly. GASTROINTESTINAL: Moderate abdominal tenderness in the left lower quadrant, no rebound. NEUROLOGIC: Grossly nonfocal, cranial nerves grossly intact. PSYCHIATRIC: Orientation, insight appropriate. MUSCULOSKELETAL: Strength grossly normal throughout, normal station. LABORATORIES: Include a slightly elevated white count of 12.9 on admission, now 11.47. Hematocrit stable at 33.2%. Normal electrolytes. Normal coags. Stool Hemoccult positive. CT scan showing colitis from the rectosigmoid to the mid transverse colon. Urinalysis negative. Normal liver function tests. Low TSH. ASSESSMENT: Bloody diarrhea, with colitis involving just some of the left side of the colon. Overall, with this, and her coronary artery disease history and recent stent, suspect ischemic colitis is most likely. Infectious colitis is also possible. Overall, she is slightly better today. PLAN: 1. "Long" flexible sigmoidoscopy, unprepped, to help differentiate the above. Of note, with her age, heart disease, recent stent, hypertension, elevated lipids, use of Effient, chronic narcotic use, etc., she is at increased risk for this procedure. However, suspect the benefits outweigh the risks, and suspect she will do well. 2. Management of her slightly low TSH (if any), as per the hospitalist service. 3. Further management otherwise pending the above. Thank you for allowing me to help in the care of this patient. /[id number]/MODL MTDHoracio
[2017-07-12 10:38] VITALS: BP 133/53
[2017-07-12] MEDS: oxyCODONE CR 15 MG TAB PO SCH (10:38)
[2017-07-12] MEDS: PRASUGREL HCL 5 MG TAB PO SCH (10:38)
[2017-07-12] MEDS: DILTIAZEM CD 120 MG CAP PO SCH (10:38)
--- NOTE | 2017-07-12 14:00 | GDS ---
[f rep st] DISCHARGE SUMMARY SERVICE: [facility] hospitalists. CONSULTS: Gastroenterology, Dr. Leary. PROCEDURES: Colonoscopy, Dr. Leary, on 07/12/2017, chest x-ray, abdomen CT scan. HISTORY AND PHYSICAL: Please see previously dictated note by Dr. Sutton. ADMISSION DIAGNOSES: Colitis, coronary artery disease, hypertension, failure to thrive. DISCHARGE DIAGNOSES: Colitis, Escherichia coli, (EPEC) positive infection, coronary artery disease, hypertension, failure to thrive, chronic neck pain, hypokalemia. HOSPITAL COURSE BY PROBLEM LIST: 1. Colitis, positive EPEC diarrhea. Patient was admitted to the hospital because of several episod es of bloody diarrhea. Hemoglobin and hematocrit were watched serially and remained stable. Gastro enterology was asked to see the patient. Dr. Leary did a consult and recommended a colonoscopy which was performed on the day of discharge. No obvious source of bleeding was noted. Subsequent GI foster el of stool testing did return with positive EPEC E coli. Dr. Leary recommended ciprofloxacin for 3 days. The patient was eager to return home and was felt stable for discharge in the afternoon after her colonoscopy. She should follow up with Dr. Leary as an outpatient in the next few weeks and als o with her primary care provider, Dr. Luna, within the next few days. If at any time she has worse dunia diarrhea, ongoing bloody stool, fever, vomiting or other concerns, she is return immediately to the emergency department for evaluation. On the day of discharge, her hemoglobin was 10.3. Recomm end rechecking this at her outpatient followup. 2. Coronary artery disease. She is on chronic anticoagulation and this was continued during her st ay as her hemoglobin remained stable. 3. Hypertension. She was continued on her home medication. 4. Failure to thrive in an elderly patient. Physical Therapy and Occupational Therapy evaluations were done while she was here. A TSH was drawn which was noted to be slightly low and should be foll owed by her primary care provider. She declined referral to a short-term SNF and can be followed by her primary care provider at home. 5. Chronic neck pain. Chronic pain medication and muscle relaxants were continued. Suggest physic al therapy, occupational therapy, if not already doing at home. 6. Hypokalemia. This was replaced per protocol. On the day of discharge, her potassium was normal ized at 3.7. DISCHARGE MEDICATIONS: All her chronic home medications were continued. Addition of Cipro 500 mg t wice a day for 3 days. DISCHARGE INSTRUCTIONS: She is to follow up with Dr. Carey Luna, her primary care provider, with in a few days of discharge. She should follow up with Dr. Michel Leary, [facility], within 1-2 weeks. Should use contagious precautions at home because of E coli, EPEC infection. Re turn to the emergency department if at any time she has worsening diarrhea, continued bloody stools, abdominal pain, fever, lightheaded, dizziness, or other concerns. /[id number]/MODL
== END 2017-07-12 14:30 | disposition home or self-care (01) | DRG 373 ==
LOC: F1N 07-11 00:25
PROVIDERS: ADMIT Internal Medicine; ATTEND Internal Medicine
PROC: 0DBL8ZX Excision of Transverse Colon, Via Natural or Artificial Opening Endoscopic, Diagnostic (ICD-10-PCS; principal; 2017-07-12 09:15)
DX: A04.0 Enteropathogenic Escherichia coli infection (principal); I10 Essential (primary) hypertension; G89.29 Other chronic pain; E87.6 Hypokalemia; R62.7 Adult failure to thrive; Z79.01 Long term (current) use of anticoagulants; E78.5 Hyperlipidemia, unspecified; K21.9 Gastro-esophageal reflux disease without esophagitis
CPT/HCPCS: 96374; 97116-GP; 97161-GP; 97165-GO; G8978-GP-CK; G8979-GP-CJ; G8987-GO-CJ; G8988-GO-CI; J1170; J2250; J2405; J3010; Q9967

== ENCOUNTER → 2018-02-22 | Outpatient (CLI) | payer OTHER | LOC: BMCIMAGING 17:47 | PROVIDERS: ATTEND Family Medicine | DX: S69.92XA Unspecified injury of left wrist, hand and finger(s), initial encounter (principal) ==

== ENCOUNTER 2018-05-16 14:50 | Day surgery (SDC) | payer OTHER ==
[2018-05-16] MEDS ORDERED: LR 1,000 ML IV ONE (15:08)
--- NOTE | 2018-05-16 15:43 | PDANEPAE ---
ANE History of Present Illness EGD ANE Past Medical History - Cardiovascular History Hx Hypertension: Yes Hx Arrhythmias: No Hx Chest Pain: No Hx Coronary Artery / Peripheral Vascular Disease: Yes Hx CHF / Valvular Disease: No Hx Palpitations: No Cardiovascular History Comment: s/p coronary stent on 03/08 - Pulmonary History Hx COPD: Yes Hx Asthma/Reactive Airway Disease: No Hx Recent Upper Respiratory Infection: No Hx Oxygen in Use at Home: No Hx Sleep Apnea: No Sleep Apnea Screening Result - Last Documented: Negative Pulmonary History Comment: uses inhaler. quit smoking last year. current O2 saturation 89-92% on fingers, 92-93% on ear - Neurologic History Hx Cerebrovascular Accident: No Hx Seizures: No Hx Dementia: No - Endocrine History Hx Diabetes: No Hypothyroid: No Hyperthyroid: No Obesity: no - Renal History Hx Renal Disorders: No Renal History Comment: kidney stones - Liver History Hx Hepatic Disorders: No - Neurological & Psychiatric Hx Hx Neurological and Psychiatric Disorders: Yes Neurological / Psychiatric History Comment: peripheral neuropathy - Cancer History Hx Cancer: Yes Cancer History Comment: skin - Congenital Disorder History Hx Congenital Disorders: No - GI History GERD: severe Hx Gastrointestinal Disorders: Yes Gastrointestinal History Comment: reflux,gerd - Other Health History Other Health History: esophageal thickening. partial left at home. dry macular degeneration. Raynaud's syndrome. limited ambulation with walker, due to pain. scoliosis - Chronic Pain History Chronic Pain: Yes (back and neck pain) - Surgical History Prior Surgeries: stent to prox lad. back surgery. skin ca removed ANE Review of Systems Review of Systems: - Exercise capacity METS (RN): 3 METS (severe back pain, ambulates with walker) ANE Patient History - Allergies Allergies/Adverse Reactions: No Allergies [NKDA] Allergy (Verified 07/10/17 20:06) - Home Medications Home Medications: Denosumab [Prolia] 60 mg SQ Q180D 03/10/17 [Last Taken 08/06/17] Esomeprazole Magnesium [Nexium 24Hr] 22.3 mg PO DAILY PRN 03/10/17 [Last Taken 05/15/18] Herbals/Supplements -Info Only 1 ea PO DAILY 03/10/17 [Last Taken 05/15/18] Hydrocodone/APAP 5/325 [Transfer 5/325 (*)] 1 each PO Q8H PRN 03/10/17 [Last Taken 05/13/18] Metoprolol Succinate Xr [Toprol Xl 50 mg (*)] 50 mg PO HS 03/10/17 [Last Taken 05/15/18] Multivitamins [Multivitamin (*)] 1 each PO DAILY 03/10/17 [Last Taken 05/15/18] Tiotropium Inhaler [Spiriva Handihaler] 18 mcg IH DAILY 03/10/17 [Last Taken 06:00] Aspirin EC [Aspirin EC 81 mg (*)] 81 mg PO DAILY 07/11/17 [Last Taken 05/09/18] Atorvastatin Calcium [Lipitor 40 mg (*)] 40 mg PO HS 07/11/17 [Last Taken ] Losartan Potassium [Cozaar] 25 mg PO DAILY 07/11/17 [Last Taken 05/15/18] oxyCODONE CR [Oxycontin] 20 mg PO BID 07/11/17 [Last Taken 05/15/18] Amlodipine Besylate 5 mg 05/16/18 [Last Taken 05/16/18 06:30] Movantik 05/16/18 [Last Taken 05/16/18 04:30] - Anes Hx Anes Hx: no prior problems - Smoking Hx Smoking Status: Former smoker (1 ppd for 59 years) Marijuana use: No - Alcohol Use Alcohol Use: Other (1 glass of wine/day) - Family Anes Hx Family Anes Hx: none Family Hx Anesthesia Complications: none ANE Labs/Vital Signs - Vital Signs Height: 152.4 cm Weight: 46.266 kg ANE Physical Exam - Airway Neck exam: decreased ROM Mallampati Score: Class 2 Mouth exam: normal dental/mouth exam - Pulmonary Pulmonary: clear to auscultation - Cardiovascular Cardiovascular: regular rate and rhythym - ASA Status ASA Status: III ANE Anesthesia Plan Anesthesia Plan: GA with mask
[2018-05-16] MEDS ORDERED: PROPOFOL/EMULSION 500 MG/50 ML BOTTLE IV ONE (16:07)
[2018-05-16] MEDS ORDERED: fentaNYL 100 MCG/2 ML INJ ONE (16:08)
--- NOTE | 2018-05-16 16:46 | PDGENHP ---
History & Physical Chief Complaint: abn'l XRay esophagus History of Present Illness: As above. Pertinent Past, Social, Family History: N/A Relevant Physical Exam: cor RRR pul CTAP abd NT ms nl Cardiorespiratory Assessment: ASA 2
[2018-05-16] MEDS ORDERED: fentaNYL 100 MCG/2 ML INJ IVP PRN (17:05)
[2018-05-16] MEDS ORDERED: NALOXONE HCL 0.4 MG/ML INJ IVP PRN (17:05)
--- NOTE | 2018-05-16 17:06 | POSTANESTH ---
Post Anesthetic Evaluation Cardiovascular Status: Similar to Pre-Op Cond Respiratory Status: Similar to Pre-op Cond. Level of Consciousness/Mental Status: Can Participate in Eval Pain Control: Adequate, Prn Tx Ordered Nausea/Vomiting Control: Adequate, Prn Tx Ordered Complications Possibly Related to Anesthesia: None Noted
[2018-05-16 18:07] VITALS: BP 153/86
--- NOTE | 2018-05-16 18:40 | GCON ---
[f rep st] CONSULTATION PROGRESS NOTE TO DR. CAREY ALLEN. DATE OF CONSULTATION: 05/16/2018 Dear Carey: Ara returns to see me today, for a new problem, an abnormal x-ray of the GI tract. She recently had a chest CT scan performed for unrelated reasons, follow up of a right middle lobe pulmonary nodule. There was mention of a hiatal hernia and some mild thickening of the distal esophagus. She denies significant esophagitis. She denies dysphagia, except occasionally to a calcium tablet at the base of her throat, because it is "too big." No dysphagia to solid food, liquids. No hematemesis. PAST MEDICAL HISTORY: 1. As above. 2. Coronary artery disease with a heart stent. 3. Possible COPD. 4. Past ischemic colitis. 5. Past low TSH. 6. Chronic pain, on chronic pain medication. 7. Recently on Effient. 8. Otherwise, noncontributory. MEDICATIONS: Outpatient medications, include recently being on Effient. She is now off this. ALLERGIES: No known drug allergies. SOCIAL HISTORY: She is . REVIEW OF SYSTEMS: Positive pertinent review of systems as per my HPI. Otherwise, complete review of systems is negative. PHYSICAL EXAMINATION: CONSTITUTIONAL: Somewhat chronically ill-appearing pleasant. SKIN: Warm, dry. EYES: Pupils equal, round, reactive to light and accommodation. EARS, NOSE, MOUTH, THROAT: Oropharynx without masses. Moist mucosa. CARDIOVASCULAR: Normal S2. Normal PMI. RESPIRATORY: Lungs clear to auscultation and percussion anteriorly. GASTROINTESTINAL: Soft, nontender. NEUROLOGIC nerves grossly intact. Grossly nonfocal. PSYCHIATRIC: Orientation , insight appropriate. MUSCULOSKELETAL: Strength grossly normal throughout, normal station. ASSESSMENT: Abnormal x-ray of the gastrointestinal tract. Mild esophageal wall thickening, seen on a CT scan of the chest done for unrelated reasons. In general, CT scan is very poor for air-filled organs, such as the esophagus. Therefore, overall, suspect a false positive. However, certainly significant esophagitis, esophageal ulcer, or esophageal malignancy is possible, but less likely. PLAN: 1. Upper endoscopy. Certainly, with her age, coronary artery disease, heart stent, possible COPD, past history of ischemic colitis, recent use of Effient, history of low TSH, etc., she is at increased risk for this procedure; however, suspect benefits outweigh the risks, and suspect she will do well. 2. Further management, if any, depending on the above. Thank you for allowing me to help in the care of this patient. /[id number]/MODL MTDHoracio
--- NOTE | 2018-05-17 10:41 | GIREPORT ---
[facility] - Endoscopy Department Patient Name: Ara Govea Procedure Date: 05/16/2018 4:39 PM Patient Type: Outpatient Attending MD/ ER Physician: Michel Leary MD Procedure: Upper GI endoscopy Indications: Abnormal chest CT, with mention of "mild thickening" of the distal esop hagus. Providers: Michel Leary MD Referring MD: Carey Luna MD; Armond Curtis MD Medicines: See the Anesthesia note for documentation of the administered medicatio ns Complications: No immediate complications. Description of Procedure: After obtaining informed consent, the endoscope was passed under direct vision. Throughout the procedure, the patient's blood pressure, pulse, and oxygen saturations were monitored continuously. The Endoscope was intro duced through the mouth, and advanced to the second part of duodenum. Findings: The esophagus was normal. The stomach was normal. The examined duodenum was normal. Estimated Blood Loss: Estimated blood loss: none. Post Op Diagnosis: - Normal esophagus. Suspect esophageal findings on chest CT a false-positive only. Recommendation: - Return to primary care physician PRN. - Thank you for allowing me to help in the management of this patient. Attending Participation: I personally performed the entire procedure. Sapphire Pearson MD Michel Leary MD 05/17/2018 10:41:10 AM This report has been signed electronicallyPeter MD Sapphire Number of Addenda: 0 Note Initiated On: 05/16/2018 4:39 PM [email or web address]
== END 2018-05-16 18:18 | disposition home or self-care (01) ==
LOC: FSGY 14:50
PROVIDERS: ATTEND Internal Medicine Gastroenterology
PROC: 0DJ08ZZ Inspection of Upper Intestinal Tract, Via Natural or Artificial Opening Endoscopic (ICD-10-PCS; principal; 2018-05-16 16:30)
DX: K22.9 Disease of esophagus, unspecified (principal); R93.8 Abnormal findings on diagnostic imaging of other specified body structures
CPT/HCPCS: J2704; J3010